=== PATIENT | female | born 1995 | race Caucasian/White ===

== ENCOUNTER → 2016-06-02 | Outpatient (CLI) | payer MEDICAID ==
[~2016-06-02] MED LIST: ALBUAER3 INH; CALNTAB; CEPH-459 PO; FOLI1TAB4 PO; FOLI5CAP PO; IRON18TA2 PO; LEVE500 PO; NITR1CAP36 PO
== END ==
LOC: HPND 10:53
PROVIDERS: ATTEND Obstetrics & Gynecology
DX: O99.350 Diseases of the nervous system complicating pregnancy, unspecified trimester (principal); R56.9 Unspecified convulsions; Z86.59 Personal history of other mental and behavioral disorders; Z3A.00 Weeks of gestation of pregnancy not specified
CPT/HCPCS: 76811; 76825; 76827; 93325

== ENCOUNTER 2016-06-07 19:37 | Emergency (ER) | payer MEDICAID ==
[~2016-06-07 19:37] MED LIST changes: -ALBUAER3 INH; -CALNTAB; -CEPH-459 PO; -FOLI5CAP PO; -IRON18TA2 PO; -LEVE500 PO
--- NOTE | 2016-06-07 20:20 | PD ---
HPI Chief Complaint Pelvic pressure for the past week Date Seen: Jun 07, 2016 Time Seen: 20:17 Travel History International Travel<30 Days: No Contact w/Intl Traveler<30Days: No Known Affected Area: No History of Present Illness HPI 21-year-old female at 28 weeks and 2 days comes in today due to pelvic pressure. Patient has been experiencing pelvic pressure for the past week but she's noticed it more today. Denies contractions or vaginal bleeding or vaginal discharge. Patient was treated for urinary tract infection and finished her antibiotics approximately 6-7 days ago, she was on a 1 week regimen of Macrobid. Patient has known of focal seizures controlled on Keppra Para: 0 : 1 History Past Medical History Narrative Medical Seizure disorder and asthma Past Surgical History Surgical History: No Previous Surgery Family History Family History: Negative Social History Alcohol Use: No Tobacco Use: No Substance Abuse: No Allergies-Medications (Allergen,Severity, Reaction): Coded Allergies: Depakote (Verified Allergy, Severe, hair falls out, 05/27/16) Hotdogs (Verified Allergy, Severe, VOMITS, 05/27/16) Penicillin (Verified Allergy, Severe, 05/27/16) Seafood (Verified Allergy, Severe, THROAT SWELLS, 05/27/16) Home Meds Active Scripts Nitrofurantoin Macrocrystal 100 Mg [id number] Mg PO BID #10 CAP Ref 0 Prov:Suzi Otto 05/27/16 Folic Acid (Folate)1 Mg Tab4 Mg PO DAILY #90 TAB Ref 0 Prov:Isma Fritz MD 04/29/16 Review of Systems Except as stated in HPI: all other systems reviewed are Neg Physical Exam Narrative GENERAL: Well-nourished, well-developed patient. SKIN: Warm and dry. HEAD: Normocephalic and atraumatic. EYES: No scleral icterus. No injection or drainage. ENT: No nasal drainage noted. Mucous membranes pink. Airway patent. NECK: Supple, trachea midline. No JVD. CARDIOVASCULAR: Regular rate and rhythm without murmurs, gallops, or rubs. RESPIRATORY: Breath sounds equal bilaterally. No accessory muscle use. BREASTS: Bilateral exam showed no masses , no retractions, no nipple discharge. ABDOMEN/GI: Abdomen soft, non-tender, bowel sounds present, no rebound, no guarding Gravid to [-26] weeks size Fundal Height: [-] GENITOURINARY: External Genitalia: intact and normal in appearance BUS glands: [-Normal] Cervix: [Posterior-] Dilatation: [-Closed] Effacement: [-Long] Station: [-High] Presentation: [-Vertex] Membranes: Intact Uterine Contractions: Absent FHT's: Category: [-1] Baseline: [140-] Reactive: Moderate Variability: Moderate Decels: Absent EXTREMITIES: No cyanosis or edema. BACK: Nontender without obvious deformity. No CVA tenderness. NEUROLOGICAL: Awake and alert. Motor and sensory grossly within normal limits. Five out of 5 muscle strength in all muscle groups. Normal speech. Data Data Vital Signs Reviewed: Yes Labs Laboratory Tests Test 06/07/16 20:00 Urine Color YELLOW Urine Turbidity HAZY Urine pH 8.0 Urine Specific [place] 1.012 Urine Protein TRACE mg/dL Urine Glucose (UA) NEG mg/dL Urine Ketones NEG mg/dL Urine Occult Blood NEG Urine Nitrite NEG Urine Bilirubin NEG Urine Urobilinogen LESS THAN 2.0 MG/DL Urine Leukocyte Esterase LARGE Urine RBC 7 /hpf Urine WBC 32 /hpf Urine Squamous Epithelial 2 /hpf Cells Urine Mucus FEW /lpf Urine Yeast (Budding) FEW Microscopic Urinalysis Comment CULTURE INDICATED MDM Medical Record Reviewed: Yes Plan 21 yo with recently treated UTI, UA now is c/w recurrent UTI UA was sent for urine culture Keflex 250mg QID Follow up with OB provider Diagnosis Diagnosis: Primary Impression: 28 weeks gestation of Additional Impression: Urinary tract infection affecting care of mother in third trimester, antepartum Disposition: DISCHARGE HOME Maureen Ramirez MD Jun 07, 2016 20:20
[2016-06-07 20:33] LABS: BLOOD, URINE NEG (NEG); COMMENT (UR) CULTURE INDICATED; CULTURE IF INDICATED CULTURE INDICATED; GLUCOSE,URINE NEG (NEG); KETONE, URINE NEG (NEG); MUCUS URINE FEW /lpf (OCC); NITRITE,URINE NEG (NEG); SQUAMOUS EPITHELIAL CELL URINE 2 /hpf (0-5); URINE COLOR YELLOW (YELLW/STRAW)
[2016-06-07] MEDS ORDERED: CEPH-459 PO (20:53)
[2016-06-07] MEDS ORDERED: FOLI5CAP PO (22:21)
[2016-06-07] MEDS ORDERED: CALNTAB (22:21)
[2016-06-07] MEDS ORDERED: IRON18TA2 PO (22:21)
[2016-06-07] MEDS ORDERED: ALBUAER3 INH (22:21)
[2016-06-07] MEDS ORDERED: LEVE500 PO (22:21)
== END 2016-06-07 21:36 | disposition home or self-care (01) ==
LOC: HOBED 19:37
DX: O23.43 Unspecified infection of urinary tract in pregnancy, third trimester (principal); B96.89 Other specified bacterial agents as the cause of diseases classified elsewhere; Z3A.28 28 weeks gestation of pregnancy
CPT/HCPCS: 81001; 87086; 99284

== ENCOUNTER 2017-06-20 02:42 | Emergency (ER) | payer MEDICAID, OTHER ==
[~2017-06-20 02:42] MED LIST changes: +ALBUAER3 INH; +CALNTAB; +CEPH-459 PO; -FOLI1TAB4 PO; +FOLI5CAP PO; +IRON18TA2 PO; +LEVE500 PO; -NITR1CAP36 PO
[2017-06-20 02:48] VITALS: BP 122/74; PULSE 85; RESP 18; TEMP 97.5; O2SAT 97
== END 2017-06-20 03:57 | disposition left against medical advice (07) ==
LOC: NED 02:42
DX: H57.9 Unspecified disorder of eye and adnexa (principal)
CPT/HCPCS: 99281